=== PATIENT | male | born 1965 | race Caucasian/White ===

== ENCOUNTER 2016-08-24 18:45 | Emergency (ER) | payer MEDICAID ==
[~2016-08-24] VITALS: Ht 162.6 cm; Wt 63.0 kg
[2016-08-24] MEDS ORDERED: ASPIRIN 325MG EC TABLET PO ONE (19:00)
[2016-08-24] MEDS ORDERED: NITROGLYCERIN 0.4MG TABLET SL SL ONE (19:06)
[2016-08-24] MEDS: NITROGLYCERIN 0.4MG TABLET SL SL PRN (19:10)
[2016-08-24 19:15] LABS: BASOPHILS % 0.4 % (0.0-2.0); EOSINOPHILS % 3.1 % (0.0-5.0); HEMATOCRIT. 30.7 % (42.0-52.0); HEMOGLOBIN. 10.5 g/dL (14.0-18.0); LYMPHOCYTES % 18.4 % (20.0-50.0); MEAN CORPUSCULAR HEMOGLOBIN 29.1 pg (28.0-32.0); MEAN CORPUSCULAR VOLUME 85.2 fL (80.0-94.0); MEAN PLATELET VOLUME 8.3 fl (7.4-10.4); MONOCYTES % 3.9 % (2.0-8.0); NEUTROPHILS % 74.2 % (40.0-76.0); PLATELET 291 x1000/uL (130-400); RED CELL DISTRIBUTION WIDTH 13.2 % (11.6-14.6)
[2016-08-24 19:22] LABS: INR 0.9; PARTIAL THROMBOPLASTIN TIME 23.5 sec (24.0-34.0); PROTHROMBIN TIME 9.8 sec
[2016-08-24] MEDS: MORPHINE SULFATE 4 MG/ML CPJ (NOT FOR IM USE) IV ONE ×2 (19:24→19:33)
[2016-08-24 19:28] LABS: CARBON DIOXIDE 26 mEq/L (21-32); CHLORIDE 108 mEq/L (98-107)
[2016-08-24 19:33] LABS: TROPONIN I 0.13 ng/mL (0.00-0.04)
[2016-08-24 19:53] VITALS: BP 127/82
== END 2016-08-24 20:10 | disposition short-term general hospital (02) ==
LOC: ER 20:06
DX: I21.3 ST elevation (STEMI) myocardial infarction of unspecified site (principal); E11.9 Type 2 diabetes mellitus without complications; F17.200 Nicotine dependence, unspecified, uncomplicated; F15.10 Other stimulant abuse, uncomplicated
CPT/HCPCS: 36415; 71010; 80053; 83880; 84484; 85025; 85610; 85730; 93005; 96374; 99285; J2270; J7030; Z7610